=== PATIENT | male | born 1980 | race African-American/Black ===

== ENCOUNTER 2017-01-26 03:45 | Emergency (ER) | payer MEDICAID, OTHER ==
[~2017-01-26] VITALS: Ht 188 cm; Wt 86.2 kg
[~2017-01-26 03:45] MED LIST: COUMADIN5 MG ORAL; NKM; NORCO 5-325 TA1 EACH ORAL; WARFARIN SODIUM5 MG ORAL
[2017-01-26 03:57] VITALS: BP 130/73
[2017-01-26] MEDS ORDERED: Methocarbamol 750mg tab ORAL ONE (04:00)
--- NOTE | 2017-01-26 04:05 | Emergency Room Report ---
History of Present Illness General Chief Complaint: Pain Source: Patient Present Illness HPI 36-year-old male history of DVT on Coumadin presenting with left shoulder pain. Patient states that he reached to get something felt a pop, since then has had severe left shoulder pain worse with movement. Allergies: Coded Allergies: NO KNOWN DRUG ALLERGIES (Unverified Allergy, Unknown, 01/11/14) Patient History Past Medical History: see triage record Past Surgical History: none Pertinent Family History: none Reviewed Nursing Documentation: PMH: Agreed, PSxH: Agreed Nursing Documentation-PMH Past Medical History: No Stated History Hx Cardiac Problems: No Hx Cancer: No Hx Gastrointestinal Problems: No Hx Neurological Problems: No Review of Systems All Other Systems: negative except mentioned in HPI Physical Exam Vital Signs Date Time Temp Pulse Resp B/P (MAP) Pulse Ox O2 Delivery O2 Flow Rate FiO2 01/26/17 03:39 97.7 86 18 131/87 98 Room Air Sp02 EP Interpretation: reviewed, normal General Appearance: normal inspection, well appearing, no apparent distress, alert, GCS 15, non-toxic Head: normocephalic, atraumatic Eyes: bilateral eye normal inspection, bilateral eye PERRL, bilateral eye EOMI ENT: normal ENT inspection, normal pharynx, normal voice, moist mucus membranes Neck: normal inspection, full range of motion, supple Respiratory: normal inspection, lungs clear, normal breath sounds, no respiratory distress, no retraction, no wheezing, speaking full sentences, chest symmetrical Cardiovascular #1: normal inspection, regular rate, rhythm, no edema, normal capillary refill Cardiovascular #2: 2+ radial (R), 2+ radial (L) Gastrointestinal: normal inspection, non tender, soft, non-distended, no guarding Genitourinary: no CVA tenderness Musculoskeletal: back normal, other - L shoulder TTP along deltoid aspect, FROM however inc pain with movement, no gross bony deforimities Neurologic: normal inspection, alert, oriented x3, responsive, motor strength/ tone normal, sensory intact, normal gait, speech normal Psychiatric: normal inspection, judgement/insight normal, memory normal Skin: normal inspection, normal color, no rash, warm/dry, well hydrated, normal turgor Medical Decision Making ER Course 36-year-old male with left shoulder strain after reaching for something DDX: Shoulder strain, fracture, unlikely to be dislocation given physical exam Less likely be cardiac given benign history Plan: X-ray, EKG ER course: Patient has remained stable during ED stay. Patient feels better Disposition: Patient is to be discharged to home. Prescriptions given are Tylenol and Robaxin Patient is instructed to follow up with their primary care doctor within 5 days. Please note that this Emergency Department Report was dictated using [employer] top helper technology software, occasionally this can lead to erroneous entry secondary to interpretation by the dictation equipment EKG Diagnostic Results Rate: normal Rhythm: NSR ST Segments: no acute changes ASA given to the pt in ED: No Rhythm Strip Diag. Results EP Interpretation: yes Rate: 87 Rhythm: NSR, no PVC's, no ectopy Chest X-Ray Diagnostic Results Chest X-Ray Diagnostic Results : Chest X-Ray Ordered: Yes # of Views/Limited/Complete: 1 View Indication: Other EP Interpretation: Yes Interpretation: no consolidation, no effusion, no pneumothorax, no acute cardiopulmonary disease Impression: No acute disease Electronically Signed by: Electronically signed by Casimiro Marcus MD Other X-Ray Diagnostic Results Other X-Ray Diagnostic Results : X-Ray ordered: L shoulder # of Views/Limited Vs Complete: 3 View Indication: Pain EP Interpretation: Yes Interpretation: no dislocation, no soft tissue swelling, no fractures Impression: No acute disease Electronically Signed by: Electronically signed by Casimiro Marcus MD Last Vital Signs Date Time Temp Pulse Resp B/P (MAP) Pulse Ox O2 Delivery O2 Flow Rate FiO2 01/26/17 03:39 97.7 86 18 131/87 98 Room Air Disposition: HOME, SELF-CARE Condition: Improved Scripts Acetaminophen* (ACETAMINOPHEN EXTRA STRENGTH*) 500 Mg Tablet 500 MG ORAL Q8H Y for Fever/Headache/Mild Pain, #30 TAB 0 Refills Prov: Casimiro Marcus M.D. 01/26/17 Methocarbamol* (ROBAXIN-750*) 750 Mg Tablet 750 MG PO QID, #28 TAB 0 Refills Prov: Casimiro Marcus M.D. 01/26/17 Casimiro Marcus M.D. Jan 26, 2017 04:05
[2017-01-26 05:10] VITALS: BP 126/72
[2017-01-26] MEDS ORDERED: ROBAXIN-750750 MG PO (05:35)
[2017-01-26] MEDS ORDERED: ACETAMINOPHEN500 M3 ORAL (05:35)
[2017-01-26 05:50] VITALS: BP 128/75
[2017-01-26 06:10] VITALS: BP 128/75
--- NOTE | 2017-01-26 11:43 | Diagnostic Imaging Report ---
Indication: PAIN Comparison: None Findings: Single view of the chest shows a normal cardiomediastinal silhouette. Pulmonary vasculature is normal. Lung are clear. Soft tissues and osseous structures are within normal limits. Impression: No acute chest disease
--- NOTE | 2017-01-26 11:44 | Diagnostic Imaging Report ---
Indication: PAIN Comparison: None Findings: 3 views of the left shoulder show no acute fractures or dislocations. Bony mineralization is normal. Acromioclavicular joint is within normal limits. Soft tissues are unremarkable. Impression: Negative left shoulder series.
--- NOTE | 2017-02-17 17:42 | Cardiology Report ---
APPROVED REPORT EKG Measurement Heart [id number] Normal sinus rhythm Normal ECG
== END 2017-01-26 06:10 | disposition home or self-care (01) ==
LOC: EDBD 03:45 → EMR 04:13
DX: S46.912A Strain of unspecified muscle, fascia and tendon at shoulder and upper arm level, left arm, initial encounter (principal); X58.XXXA Exposure to other specified factors, initial encounter; Y92.89 Other specified places as the place of occurrence of the external cause
CPT/HCPCS: 71010; 93005; 99284

== ENCOUNTER 2017-10-25 05:44 | Emergency (ER) | payer SELFPAY ==
[~2017-10-25] VITALS: Ht 188 cm; Wt 85.7 kg
[~2017-10-25 05:44] MED LIST changes: +ACETAMINOPHEN500 M3 ORAL; +ROBAXIN-750750 MG PO
[2017-10-25] MEDS ORDERED: Ketorolac 60mg Inj IM ONE (06:45)
[2017-10-25] MEDS ORDERED: NORCO 5-325 TA1 EACH ORAL (07:31)
[2017-10-25 07:49] VITALS: BP 113/79
--- NOTE | 2017-10-25 15:37 | Diagnostic Imaging Report ---
Indications: Pain in right femur Technique: Two views of the right femur Comparison: none Findings: No acute fractures. No dislocations. Normal mineralization. There is a medullary louise seen reducing old healed mid shaft femoral fracture. There is also surgical hardware in the proximal tibia and an old healed fracture of the proximal fibula Impression: No acute bony trauma Postsurgical and posttraumatic changes, as described
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
== END 2017-10-25 08:02 | disposition home or self-care (01) ==
LOC: EMR 06:30
DX: S80.01XA Contusion of right knee, initial encounter (principal); W19.XXXA Unspecified fall, initial encounter; Y92.9 Unspecified place or not applicable
CPT/HCPCS: 96372; 99283

== ENCOUNTER 2017-11-01 07:35 | Emergency (ER) | payer MEDICAID ==
[~2017-11-01] VITALS: Ht 188 cm; Wt 93.0 kg
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
[2017-11-01 09:06] VITALS: BP 138/89
[2017-11-01] MEDS ORDERED: IBUPROFEN600 MG ORAL (09:22)
[2017-11-01 09:25] VITALS: BP 138/89
--- NOTE | 2017-11-01 14:15 | Diagnostic Imaging Report ---
APPROVED REPORT CPT Code: 51114 Past History DVT :Right RIGHT LEG: Venous imaging reveals recanalized chronic thrombus in the superficial femoral and peroneal veins. Large collateral vein noted anterior to the superficial femoral artery. Imaging also reveals patency of the common femoral, popliteal and calf (posterior and anterior) veins. The greater saphenous vein is also within normal limits. Doppler indicates normal spontaneous flow within these segments. There is no evidence of acute deep vein thrombosis.
== END 2017-11-01 09:41 | disposition home or self-care (01) ==
LOC: EMR 08:04
DX: M25.561 Pain in right knee (principal); G89.29 Other chronic pain
CPT/HCPCS: 93971; 99284

== ENCOUNTER 2017-12-06 01:57 | Emergency (ER) | payer MEDICAID ==
[~2017-12-06] VITALS: Ht 188 cm; Wt 87.1 kg
[~2017-12-06 01:57] MED LIST changes: +IBUPROFEN600 MG ORAL
[2017-12-06 02:26] VITALS: BP 110/77
[2017-12-06] MEDS ORDERED: NORCO 5-325 TA1 EACH ORAL (03:20)
[2017-12-06 03:31] VITALS: BP 112/78
[2017-12-06 03:32] VITALS: BP 112/78
--- NOTE | 2017-12-06 16:44 | Diagnostic Imaging Report ---
APPROVED REPORT CPT Code: 20113 Present Symptoms Lower Extremity Pain: Right RIGHT LEG: Venous imaging reveals a patent deep venous system. There is no evidence of thrombus within the femoral, popliteal or tibial segments. The greater saphenous vein is also within normal limits. Doppler indicates normal spontaneous flow within these segments.
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
== END 2017-12-06 03:56 | disposition home or self-care (01) ==
LOC: EMR 02:32
DX: R60.0 Localized edema (principal); G89.29 Other chronic pain
CPT/HCPCS: 93971; 99284

== ENCOUNTER 2018-05-19 23:51 | Emergency (ER) | payer MEDICAID ==
[~2018-05-19] VITALS: Ht 188 cm; Wt 86.2 kg
--- NOTE | 2018-05-20 | NUR ---
ED Nurse Note: Patient walk in c/o bilateral knee pain for 4x days. Patient reports swelling right knee. Patient reports swelling in bilateral ankles. pt assess and pt has swelling on right knee, complaining of 10/10 pain. pt stated he has no pain when still but has pain when ambulating, pt stated he has operation on right knee on 2013 and stopped taking coumadin for the blood clots. ermd on bedside ordered compa and motrin and ua. will continue to monitor.
--- NOTE | 2018-05-20 00:22 | NUR ---
ED Nurse Note: pt refused to give urine specimen, ermd made aware. will continue to monitor.
--- NOTE | 2018-05-20 01:03 | Emergency Room Report ---
History of Present Illness General Chief Complaint: Lower Extremity Injury Source: Patient, Medical Record Present Illness HPI Is a 38-year-old male who had previous chronic right DVT secondary to femur fracture and low show any fracture that require surgery. He is supposed be on Coumadin but he stopped because he found that it was rat poison. He denies any fever chills denies any nausea vomiting. Complaining of pain is 10 out of 10. Worse in the last week. No other complaint. Denies any nausea vomiting. Worse with walking. Allergies: Coded Allergies: NO KNOWN DRUG ALLERGIES (Unverified Allergy, Unknown, 01/11/14) Patient History Past Medical History: see triage record, old chart reviewed Past Surgical History: other Pertinent Family History: none Social History: Denies: smoking Immunizations: other Reviewed Nursing Documentation: PMH: Agreed; PSxH: Agreed Nursing Documentation-PMH Hx Cardiac Problems: No - surgery to rt hip,leg 2013 Hx Cancer: No Hx Gastrointestinal Problems: No Review of Systems Eye: Denies: eye pain, blurred vision ENT: Denies: ear pain, nose congestion, throat swelling Respiratory: Denies: cough, shortness of breath Cardiovascular: Denies: chest pain, palpitations Gastrointestinal: Denies: abdominal pain, diarrhea, nausea, vomiting Musculoskeletal: Reports: joint swelling, muscle pain; Denies: back pain, joint pain Skin: Denies: rash Neurological: Denies: headache, numbness Endocrine: Denies: increased thirst, increased urine Hematologic/Lymphatic: Denies: easy bruising All Other Systems: negative except mentioned in HPI Physical Exam Vital Signs Date Time Temp Pulse Resp B/P (MAP) Pulse Ox O2 Delivery O2 Flow Rate FiO2 05/19/18 23:58 98.1 78 16 129/87 97 Room Air vitals normal Sp02 EP Interpretation: reviewed, normal General Appearance: well appearing, no apparent distress, alert Head: normocephalic, atraumatic Eyes: bilateral eye PERRL, bilateral eye EOMI ENT: hearing grossly normal, normal pharynx Neck: full range of motion, supple, no meningismus Respiratory: chest non-tender, lungs clear, normal breath sounds Cardiovascular #1: regular rate, rhythm, no murmur Gastrointestinal: normal bowel sounds, non tender, no mass, no organomegaly, no bruit, non-distended Musculoskeletal: back normal, normal range of motion, swelling - 1+ edema to lower extrem, tender - Diffuse tenderness Neurologic: alert, oriented x3 Psychiatric: mood/affect normal Skin: warm/dry Medical Decision Making Diagnostic Impression: Primary Impression: Chronic pain Qualified Codes: G89.4 - Chronic pain syndrome Additional Impression: DVT (deep venous thrombosis) Qualified Codes: I82.531 - Chronic embolism and thrombosis of right popliteal vein ER Course Patient with chronic DVT with revascularization. We'll discharge home. His girlfriend wanted me to write him a prescription for Coumadin. We'll put him back on it. No evidence of acute DVT. Patient refused to give me a urine sample because he said that I am racial profiling him. Since he been here he's been sleeping very hard to wake up. Suspect narcotic seeking behavior since he came all the way from [place]. CT/MRI/US Diagnostic Results CT/MRI/US Diagnostic Results : Imaging Test Ordered: Ultrasound right leg Impression Read by emt p. Chronic popliteal DVT. No acute DVT. Last Vital Signs Date Time Temp Pulse Resp B/P (MAP) Pulse Ox O2 Delivery O2 Flow Rate FiO2 05/19/18 23:58 98.1 78 16 129/87 97 Room Air Status: improved Disposition: HOME, SELF-CARE Scripts Acetaminophen* (ACETAMINOPHEN EXTRA STRENGTH*) 500 Mg Tablet 500 MG ORAL Q8H PRN for Fever/Headache/Mild Pain, #30 TAB Prov: Harinder Garcia MD 05/20/18 Warfarin Sod* (COUMADIN*) 5 Mg Tablet 5 MG ORAL DAILY, #30 TAB Prov: Harinder Garcia MD 05/20/18 Referrals: [facility],REFERRING (PCP) Additional Instructions: Follow-up with your doctor in 7 days. Return if worse. Harinder Garcia MD May 20, 2018 01:03
[2018-05-20] MEDS ORDERED: COUMADIN5 MG ORAL (01:21)
[2018-05-20] MEDS ORDERED: ACETAMINOPHEN500 M3 ORAL (01:21)
[2018-05-20 01:29] VITALS: BP 115/75
--- NOTE | 2018-05-20 01:29 | NUR ---
ED Nurse Note: pt was cleared for discharge by ermd, discharge instruction and prescription explained and pt able to verbalize understanding. id band remove. pt able to walk with steady gait. pt left the ed with all belongings.
--- NOTE | 2018-05-20 10:58 | Diagnostic Imaging Report ---
Indication: Right leg pain Technique: Grayscale and duplex images of the right lower extremity veins Comparison: 12/06/2017 Findings: Nonocclusive thrombus is seen within the right popliteal vein. This results in incomplete compressibility. Nonocclusive thrombus is also seen in the posterior tibial vein. These findings are not evident on the prior exam Impression: Nonocclusive thrombus within the right popliteal and posterior tibial veins. This may indicate subacute thrombus. Findings are nonetheless new since prior study of 12/06/2017
== END 2018-05-20 01:29 | disposition home or self-care (01) ==
LOC: EMR 05-20 00:15
DX: G89.29 Other chronic pain (principal); I82.431 Acute embolism and thrombosis of right popliteal vein; I82.441 Acute embolism and thrombosis of right tibial vein
CPT/HCPCS: 93971; 99284

== ENCOUNTER 2019-08-20 06:34 | Emergency (ER) | payer MEDICAID ==
[~2019-08-20] VITALS: Ht 188 cm; Wt 86.2 kg
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
[2019-08-20 06:33] VITALS: BP 125/77
--- NOTE | 2019-08-20 06:37 | NUR ---
ED Nurse Note: pt being taken down to CT
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
--- NOTE | 2019-08-20 06:55 | NUR ---
ED Nurse Note: pt returned from CT
[2019-08-20 07:17] LABS: BASOPHILS % (AUTO) 1.2 % (0.0-2.0); EOSINOPHILS % (AUTO) 1.6 % (0.0-3.0); HEMATOCRIT 35.7 % (42.0-52.0); HEMOGLOBIN 12.7 G/DL (14.2-18.0); LYMPHOCYTES % (AUTO) 21.6 % (20.0-45.0); MEAN CORPUSCULAR VOLUME 97 FL (80-99); MONOCYTES % (AUTO) 7.9 % (1.0-10.0); NEUTROPHILS % (AUTO) 67.7 % (45.0-75.0); PLATELET COUNT 192 K/UL (150-450); RED BLOOD COUNT 3.68 M/UL (4.70-6.10); RED CELL DISTRIBUTION WIDTH 10.6 % (11.6-14.8)
[2019-08-20 07:22] LABS: ANION GAP 6 mmol/L (5-15); BLOOD UREA NITROGEN 14 mg/dL (7-18); CARBON DIOXIDE 29 MMOL/L (21-32); CHLORIDE 106 MMOL/L (98-107); CREATININE 1.2 MG/DL (0.55-1.30); POTASSIUM 3.8 MMOL/L (3.5-5.1); SODIUM 141 MMOL/L (136-145)
--- NOTE | 2019-08-20 08:15 | NUR ---
ED Nurse Note: Pt consistently refusing to provide urine specimen. Dr Karen medina not to collect the urine sample.
[2019-08-20] MEDS ORDERED: ACETAMINOPHEN500 M3 ORAL (08:22)
[2019-08-20 08:30] VITALS: BP 134/70
--- NOTE | 2019-08-20 08:34 | Diagnostic Imaging Report ---
Indications: Altered level of consciousness Technique: Spiral acquisitions obtained through the brain. Angled axial and coronal 5 x 5 mm slices were reconstructed. Total dose length product 1125 mGycm. CTDI vol(s) 53 mGy. Dose reduction achieved using automated exposure control Comparison: None. Findings: No acute intracranial hemorrhage or edema. No mass effect nor midline shift. Normal summers-white differentiation. Normal size ventricles and extra-axial CSF spaces. The calvarium is intact. Large orbits are unremarkable. There is minimal ethmoid sinus disease. Impression: Negative The CT scanner at [facility] is accredited by the [employer] and the scans are performed using protocols designed to limit radiation exposure to as low as reasonably achievable to attain images of sufficient resolution adequate for diagnostic evaluation.
[2019-08-20] MEDS ORDERED: Lidocaine 1% 10mg/ml/EPI 0.01mg/ml 30ml INJ ONE (08:45)
--- NOTE | 2019-08-20 08:50 | NUR ---
ED Nurse Note: Dr Jones at the bed side for mariya of laceration on the posterior head.
[2019-08-20] MEDS ORDERED: Bacitracin Oint UD TOPIC ONE (09:00)
[2019-08-20 10:16] VITALS: BP 18/72
--- NOTE | 2019-08-20 10:16 | NUR ---
ER DISCHARGE NOTE: Patient is cleared to be discharged per ERMD, pt is aox4, on room air, with stable vital signs. pt was given dc and prescription instructions, pt was able to verbalize understanding, pt id band and iv site removed without complications. pt is able to ambulate with steady gait. pt took all belongings.
== END 2019-08-20 10:16 | disposition home or self-care (01) ==
LOC: EDBD 06:34 → EMR 07:17
DX: S09.90XA Unspecified injury of head, initial encounter (principal); S01.01XA Laceration without foreign body of scalp, initial encounter; W19.XXXA Unspecified fall, initial encounter; Y92.811 Bus as the place of occurrence of the external cause; Z86.718 Personal history of other venous thrombosis and embolism; Z79.01 Long term (current) use of anticoagulants; R51 Headache; R11.0 Nausea
CPT/HCPCS: 12002; 36415; 70450; 80048; 85025; 85610; 85730; G0480; Z7502; 99284

== ENCOUNTER 2020-02-11 | Emergency (ER) | payer MEDICAID ==
[~2020-02-11] VITALS: Ht 188 cm; Wt 99.8 kg
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
--- NOTE | 2020-02-11 00:15 | NUR ---
ED Nurse Note: ERMD at bedside
[2020-02-11] MEDS ORDERED: HYDROcodone/Acetamin 5/325 tab ORAL ONE (00:30)
[2020-02-11 00:34] VITALS: BP 136/68
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
--- NOTE | 2020-02-11 00:40 | NUR ---
ED Nurse Note: assistant technician at bedside
[2020-02-11] MEDS ORDERED: IBUPROFEN600 M1 ORAL (00:52)
[2020-02-11] MEDS ORDERED: HYDROCODON-ACE1 EA15 ORAL (00:52)
[2020-02-11 00:58] VITALS: BP 136/68
--- NOTE | 2020-02-11 16:30 | Diagnostic Imaging Report ---
Indication: Pain, trauma Technique: 4 views of the right knee Comparison: none Findings: Surgical hardware is seen reducing old healed proximal femoral shaft fracture. Surgical side plate and screws are also seen reducing old healed fibular fracture deformity. There is also old healed fracture deformity of the proximal fibula. No definite acute fractures. No suprapatellar effusion. Impression: Postsurgical changes and posttraumatic changes as described No definite acute bony trauma
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
== END 2020-02-11 00:59 | disposition home or self-care (01) ==
LOC: EMR 00:27
DX: G89.29 Other chronic pain (principal); M25.561 Pain in right knee; S82.65XA Nondisplaced fracture of lateral malleolus of left fibula, initial encounter for closed fracture; I10 Essential (primary) hypertension; V03.90XA Pedestrian on foot injured in collision with car, pick-up truck or van, unspecified whether traffic or nontraffic accident, initial encounter; Y93.01 Activity, walking, marching and hiking; Y92.481 Parking lot as the place of occurrence of the external cause
CPT/HCPCS: 73564; 73610; Z7502; 99283